=== PATIENT | female | born 1950 | race Caucasian/White ===

== ENCOUNTER 2016-06-28 08:48 | Observation (INO) ==
[2016-06-28] MEDS ORDERED: 0.9 % Sodium Chloride 500 ML IVC ONE (09:03)
[2016-06-28] MEDS ORDERED: Aspirin 81 MG TAB.CHEW PO ONE (09:03)
[2016-06-28] MEDS ORDERED: Ipratropium/Albuterol Neb 3 ML IH ONE (09:06)
[2016-06-28] MEDS ORDERED: Ondansetron 4 MG/2 ML VIAL IV ONE (09:06)
[2016-06-28] MEDS ORDERED: *HR* HYDROmorphone (PF) 1 MG/ML SYRINGE IV ONE (09:06)
[2016-06-28] MEDS ORDERED: methylPREDNISolone 125 MG/2 ML VIAL IVP ONE (09:07)
[2016-06-28 09:30] LABS: Basophils % 0.4 %; Eosinophils # 0.1 K/mcL (0.0-0.6); Eosinophils % 0.7 %; Hematocrit 33.3 % (35.3-44.9); Hemoglobin 11.4 g/dL (11.5-15.4); Immature Granulocytes % 0.4 % (0-4); Lymphocytes # 2.4 K/mcL (0.6-4.6); Lymphocytes % 24.1 %; Mean Corpuscular HGB Conc 34.2 g/dL (31.6-35.5); Mean Corpuscular Hemoglobin 32.7 pg (28.0-33.3); Mean Corpuscular Volume 95.4 fL (83.0-100.0); Mean Platelet Volume 9.2 fL (9.4-12.4); Monocytes # 0.5 K/mcL (0.0-1.3); Neutrophils # 6.8 K/mcL (1.6-8.9); Platelet Count 269 K/mcL (140-400); Red Blood Count 3.49 M/mcL (3.82-4.97); Red Cell Distribution Width 14.4 % (11.5-14.5); Segmented Neutrophils % 69.4 %
[2016-06-28 09:35] LABS: INR 1.1; Prothrombin Time 11.8 Seconds (9.4-12.1)
[2016-06-28 09:37] LABS: Activated Partial Thrombo Time 35.2 Seconds (26.0-36.0)
[2016-06-28 09:43] LABS: BUN/Creatinine Ratio 15 (6-26); Blood Urea Nitrogen 12 mg/dL (7-20); Calcium 8.9 mg/dL (8.6-10.8); Carbon Dioxide 25 mEq/L (19-29); Chloride 103 mEq/L (98-109); Glucose 107 mg/dL (70-99); Osmolality,Calculated 288 (280-300); Potassium 3.6 mEq/L (3.5-4.5); Sodium 139 mEq/L (136-145); eGFR For African Americans > 60 (> 60); eGFR For Non-African Americans > 60 (> 60)
--- NOTE | 2016-06-28 10:23 | Emergency Department Note ---
Disposition Clinical Impression: COPD exacerbation Chest pain Qualifiers: Qualified Code(s): R07.9 - Disposition: Admitted As Inpatient Condition: Fair Time of Disposition: 16:23 Chest Pain HPI - General Chief Complaint: ED Chest Pain Stated Complaint: Chest Pain Source: patient, EMS Mode of arrival: private vehicle Limitations: no limitations Vital Signs Reviewed: Yes Nursing Notes Reviewed: Yes - History of Present Illness HPI Narrative: 66-year-old female patient presents to the emergency department with complaint of chest pain. Patient states that her pain is midsternal and nonradiating. She denies any nausea, vomiting or diaphoresis. Patient states that she has had similar episodes in the past and with this occurred she initially took 3 nitroglycerin without any relief in her discomfort. Patient states that this occurred at approximately 0 2:30 this morning while she was asleep, and awoke her from sleep. Patient has had a previous stent placed in 2014 but was told at that time that she had no additional significant blockages of her coronary arteries. Additionally, patient notes that she has had a significant cough for the last several days, as well as a history of COPD. Pt complaint: chest pain Duration: constant Onset: during rest, awoke with symptoms Pain Location: substernal Severity: severe Severity scale (1-10): 10 Quality: tightness, sharp Pain Radiation: none Improves with: nothing Worsens with: nothing Associated symptoms: Denies: nausea, vomiting, diaphoresis, dyspnea Treatments prior to arrival chest pain: aspirin, nitroglycerin - Related Data Home Medications Medication Instructions Recorded Confirmed Acetaminophen [Tylenol] 1,000 mg PO Q6HR PRN 01/25/16 06/28/16 Acetylcysteine 600 mg PO BID 01/25/16 06/28/16 [N-Qbupmx-v-Cysteine] Albuterol Sulfate [Ventolin Hfa] 2 puff IH Q4H PRN 01/25/16 06/28/16 Aspirin 81 mg PO DAILY 01/25/16 06/28/16 Atorvastatin [Lipitor] 40 mg PO HS 01/25/16 06/28/16 Calcium Carbonate [Calcium] 500 mg PO TID 01/25/16 06/28/16 Citalopram [CeleXA] 20 mg PO DAILY 01/25/16 06/28/16 Cyanocobalamin (Vitamin B-12) 100 mcg PO DAILY 01/25/16 06/28/16 [Vitamin B-12] DiphenhydraMINE [Benadryl] 25 mg PO Q6HR PRN 01/25/16 06/28/16 Fluticasone/Vilanterol [Breo 1 each IH DAILY 01/25/16 06/28/16 Ellipta 100-25 Mcg INH] Furosemide [Lasix] 20 mg PO DAILY 01/25/16 06/28/16 Lisinopril [Zestril] 5 mg PO DAILY 01/25/16 06/28/16 Melatonin 10 mg PO HS 01/25/16 06/28/16 Metoprolol [Lopressor] 12.5 mg PO BID 01/25/16 06/28/16 Multivit-Min/Iron/Folic/Lutein 1 each PO DAILY 01/25/16 06/28/16 [Centrum Silver Women Tablet] Nitroglycerin [Nitrostat] 0.4 mg SL AD PRN 01/25/16 06/28/16 Omeprazole [PriLOSEC] 40 mg PO DAILY 01/25/16 06/28/16 Oxygen 3 l NS HS 01/25/16 06/28/16 Potassium Chloride [K-Tab ER] 20 meq PO DAILY 01/25/16 06/28/16 Ticagrelor [Brilinta] 90 mg PO BID 01/25/16 06/28/16 TraMADol [Ultram] 50 mg PO DAILY 01/25/16 06/28/16 TraZODone 50 mg PO HS 01/25/16 06/28/16 Tizanidine HCl 4 mg PO TID PRN 06/28/16 06/28/16 Allergies Allergy/AdvReac Type Severity Reaction Status Date / Time morphine Allergy Hallucinati Verified 06/09/16 19:02 ng All systems ED: reviewed and negative except as stated. Constitutional: Denies: fever, chills Cardiovascular: Reports: chest pain. Denies: palpitations Respiratory: Reports: cough, dyspnea, wheezes Gastrointestinal: Denies: abdominal pain, nausea, vomiting Musculoskeletal: Denies: back pain, neck pain Integumentary: Denies: rash, abrasion, lesions Neurological: Denies: headache Psychiatric: Denies: anxiety, depression, suicidal thoughts, homicidal thoughts Chest Pain PMH - Past Medical History Medical history: Reports: arthritis, cancer, COPD, coronary artery disease, GERD , hyperlipidemia, hypertension, myocardial infarction Surgical history: Reports: appendectomy, cholecystectomy Psychiatric history: Reports: anxiety, depression 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 Absent: respiratory distress - Expanded Respiratory Exam Location: wheezes: Left, Upper, Lower, rhonchi: Lower, decreased breath sounds: Upper, Lower, Left - Cardiovascular Cardiovascular exam: Present: regular rate, normal rhythm, normal heart sounds - Abdominal Exam Abdominal exam: Present: soft, Non-Tender, normal bowel sounds - Extremities Exam Extremities exam: Present: normal inspection, full ROM. Absent: tenderness, pedal edema - Back Exam Back exam: Present: normal inspection, full ROM. Absent: tenderness - Neurological Exam Neurological exam: Present: alert, oriented X3 - Psychiatric Psychiatric exam: Present: normal affect, normal mood Course Vital Signs Temperature 98.6 F 06/28/16 08:49 Pulse Rate 69 06/28/16 08:49 Respiratory Rate 16 06/28/16 08:49 Blood Pressure 135/83 06/28/16 08:49 O2 Sat by Pulse Oximetry 93 L 06/28/16 08:49 Temperature 98.1 F 06/28/16 15:03 Pulse Rate 79 06/28/16 15:03 Respiratory Rate 16 06/28/16 15:58 Blood Pressure 129/75 06/28/16 15:03 O2 Sat by Pulse Oximetry 95 06/28/16 15:58 Oxygen Delivery Oxygen Delivery Room Air Chest Pain - Lab Data Lab results reviewed: Yes I reviewed the patient's lab results. Result diagrams: 06/28/16 09:21 06/28/16 09:21 Lab Results 06/28/16 06/28/16 06/28/16 Range/Units 09:21 09:21 09:21 WBC 9.8 (4.3-11.1) K/mcL RBC 3.49 L (3.82-4.97) M/mcL Hgb 11.4 L (11.5-15.4) g/dL Hct 33.3 L (35.3-44.9) % MCV 95.4 (83.0-100.0) fL MCH 32.7 (28.0-33.3) pg MCHC 34.2 (31.6-35.5) g/dL RDW 14.4 (11.5-14.5) % Plt Count 269 (140-400) K/mcL MPV 9.2 L (9.4-12.4) fL Immature Gran % 0.4 (0-4) % Seg Neutrophils % 69.4 % Lymphocytes % 24.1 % Monocytes % 5.0 % Eosinophils % 0.7 % Basophils % 0.4 % Neutrophils # 6.8 (1.6-8.9) K/mcL Lymphocytes # 2.4 (0.6-4.6) K/mcL Monocytes # 0.5 (0.0-1.3) K/mcL Eosinophils # 0.1 (0.0-0.6) K/mcL Basophils # 0.0 (0.0-0.2) K/mcL PT 11.8 (9.4-12.1) Seconds INR 1.1 APTT 35.2 (26.0-36.0) Seconds Sodium (136-145) mEq/L Potassium (3.5-4.5) mEq/L Chloride (98-109) mEq/L Carbon Dioxide (19-29) mEq/L BUN (7-20) mg/dL Creatinine (0.57-1.11) mg/dL Est GFR ( Amer) (> 60) Est GFR (Non-Af Amer) (> 60) BUN/Creatinine Ratio (6-26) Glucose (70-99) mg/dL Calculated Osmolality (280-300) Calcium (8.6-10.8) mg/dL Troponin I (0-0.03) ng/mL B-Natriuretic Peptide 33 (0-100) pg/mL Urine Color (Yellow) Urine Clarity (Clear) Urine pH (5.0-8.0) pH Units Ur Specific [place] (1.010-1.025) Urine Protein (Neg-Trace) mg/dL Urine Glucose (UA) (Normal) mg/dL Urine Ketones (Negative) mg/dL Urine Blood (Negative) Urine Nitrite (Negative) Urine Bilirubin (Negative) Urine Urobilinogen (Normal) mg/dL Ur Leukocyte Esterase (Negative) Urine Microscopic RBC (0-3) per hpf Urine Microscopic WBC (0-3) per hpf Ur Squamous Epith Cells (None-Few) per lpf Urine Bacteria (None-Few) per hpf Hyaline Casts (None-Few) per lpf Ur Culture Indicated? (NO) Urine Opiates Screen (Rxtgcm=989) ng/mL Ur Barbiturates Screen (Vwinfx=022) ng/mL Ur Phencyclidine Scrn (Cutoff=25) ng/mL Ur Amphetamines Screen (Czzucr=1491) ng/mL U Benzodiazepines Scrn (Aazfde=608) ng/mL Urine Cocaine Screen (Cutoff= 300) ng/mL U Marijuana (THC) Screen (Cutoff = 50) ng/mL 06/28/16 06/28/16 06/28/16 Range/Units 09:21 09:21 11:03 WBC (4.3-11.1) K/mcL RBC (3.82-4.97) M/mcL Hgb (11.5-15.4) g/dL Hct (35.3-44.9) % MCV (83.0-100.0) fL MCH (28.0-33.3) pg MCHC (31.6-35.5) g/dL RDW (11.5-14.5) % Plt Count (140-400) K/mcL MPV (9.4-12.4) fL Immature Gran % (0-4) % Seg Neutrophils % % Lymphocytes % % Monocytes % % Eosinophils % % Basophils % % Neutrophils # (1.6-8.9) K/mcL Lymphocytes # (0.6-4.6) K/mcL Monocytes # (0.0-1.3) K/mcL Eosinophils # (0.0-0.6) K/mcL Basophils # (0.0-0.2) K/mcL PT (9.4-12.1) Seconds INR APTT (26.0-36.0) Seconds Sodium 139 (136-145) mEq/L Potassium 3.6 (3.5-4.5) mEq/L Chloride 103 (98-109) mEq/L Carbon Dioxide 25 (19-29) mEq/L BUN 12 (7-20) mg/dL Creatinine 0.80 (0.57-1.11) mg/dL Est GFR ( Amer) > 60 (> 60) Est GFR (Non-Af Amer) > 60 (> 60) BUN/Creatinine Ratio 15 (6-26) Glucose 107 H (70-99) mg/dL Calculated Osmolality 288 (280-300) Calcium 8.9 (8.6-10.8) mg/dL Troponin I 0.00 (0-0.03) ng/mL B-Natriuretic Peptide (0-100) pg/mL Urine Color Yellow (Yellow) Urine Clarity Turbid A (Clear) Urine pH 6.0 (5.0-8.0) pH Units Ur Specific [place] 1.014 (1.010-1.025) Urine Protein Negative (Neg-Trace) mg/dL Urine Glucose (UA) Normal (Normal) mg/dL Urine Ketones Negative (Negative) mg/dL Urine Blood Moderate H (Negative) Urine Nitrite Negative (Negative) Urine Bilirubin Negative (Negative) Urine Urobilinogen Normal (Normal) mg/dL Ur Leukocyte Esterase Small H (Negative) Urine Microscopic RBC 30-50 H (0-3) per hpf Urine Microscopic WBC 5-15 H (0-3) per hpf Ur Squamous Epith Cells Many H (None-Few) per lpf Urine Bacteria Many H (None-Few) per hpf Hyaline Casts None Seen (None-Few) per lpf Ur Culture Indicated? YES A (NO) Urine Opiates Screen (Stpvmx=076) ng/mL Ur Barbiturates Screen (Isqsym=445) ng/mL Ur Phencyclidine Scrn (Cutoff=25) ng/mL Ur Amphetamines Screen (Cyungr=3004) ng/mL U Benzodiazepines Scrn (Bjywrn=719) ng/mL Urine Cocaine Screen (Cutoff= 300) ng/mL U Marijuana (THC) Screen (Cutoff = 50) ng/mL 06/28/16 Range/Units 11:03 WBC (4.3-11.1) K/mcL RBC (3.82-4.97) M/mcL Hgb (11.5-15.4) g/dL Hct (35.3-44.9) % MCV (83.0-100.0) fL MCH (28.0-33.3) pg MCHC (31.6-35.5) g/dL RDW (11.5-14.5) % Plt Count (140-400) K/mcL MPV (9.4-12.4) fL Immature Gran % (0-4) % Seg Neutrophils % % Lymphocytes % % Monocytes % % Eosinophils % % Basophils % % Neutrophils # (1.6-8.9) K/mcL Lymphocytes # (0.6-4.6) K/mcL Monocytes # (0.0-1.3) K/mcL Eosinophils # (0.0-0.6) K/mcL Basophils # (0.0-0.2) K/mcL PT (9.4-12.1) Seconds INR APTT (26.0-36.0) Seconds Sodium (136-145) mEq/L Potassium (3.5-4.5) mEq/L Chloride (98-109) mEq/L Carbon Dioxide (19-29) mEq/L BUN (7-20) mg/dL Creatinine (0.57-1.11) mg/dL Est GFR ( Amer) (> 60) Est GFR (Non-Af Amer) (> 60) BUN/Creatinine Ratio (6-26) Glucose (70-99) mg/dL Calculated Osmolality (280-300) Calcium (8.6-10.8) mg/dL Troponin I (0-0.03) ng/mL B-Natriuretic Peptide (0-100) pg/mL Urine Color (Yellow) Urine Clarity (Clear) Urine pH (5.0-8.0) pH Units Ur Specific [place] (1.010-1.025) Urine Protein (Neg-Trace) mg/dL Urine Glucose (UA) (Normal) mg/dL Urine Ketones (Negative) mg/dL Urine Blood (Negative) Urine Nitrite (Negative) Urine Bilirubin (Negative) Urine Urobilinogen (Normal) mg/dL Ur Leukocyte Esterase (Negative) Urine Microscopic RBC (0-3) per hpf Urine Microscopic WBC (0-3) per hpf Ur Squamous Epith Cells (None-Few) per lpf Urine Bacteria (None-Few) per hpf Hyaline Casts (None-Few) per lpf Ur Culture Indicated? (NO) Urine Opiates Screen Negative (Uhmhxa=178) ng/mL Ur Barbiturates Screen Negative (Hsqzjh=144) ng/mL Ur Phencyclidine Scrn Negative (Cutoff=25) ng/mL Ur Amphetamines Screen Negative (Menfdc=6755) ng/mL U Benzodiazepines Scrn Negative (Evcmys=976) ng/mL Urine Cocaine Screen Negative (Cutoff= 300) ng/mL U Marijuana (THC) Screen Negative (Cutoff = 50) ng/mL - Radiology Data Radiology results reviewed: Yes I reviewed the patient's radiology results. - EKG Data EKG attestation: Yes I reviewed and interpreted this EKG. EKG shows normal: sinus rhythm Rate: normal Rhythm: NSR Garrett/QRS: normal Heart Score - Score History: Highly Suspicious EKG: Normal Age: Greater than 65 Risk Factors: Equal/Greater than 3 risk factor or history of atherosclerotic disease Troponin: Less than normal limit HEART Score Total: 6
--- NOTE | 2016-06-28 10:55 | Emergency Department Note ---
START Narrative - START START: I examined this patient and my medical decision-making was reviewed with the LAWYER PROBATE/PA/Advanced Practice Nurse/Resident Physician. I agree with the documented findings, disposition and treatment plan as described except to the extent set forth below. ED attending note: Patient seen with edition assistant editor Benja ELY. Please see a copy of his note for details of the H&P, evaluation, management and disposition of this patient. We independently had [id number] contact with the patient Briefly: A 66-year-old female by EMS chest pain. History of stents. Took 3 nitroglycerin at home. Her pain. EKG nonspecific changes. 5. Troponin negative. Will be admitted for ACS workup. Provided 35 minutes of critical care service this patient.
[2016-06-28 11:17] LABS: Amphetamine Screen,Urine Negative ng/mL (Cutoff=1000); Barbiturate Screen,Urine Negative ng/mL (Cutoff=200); Benzodiazepines Screen,Urine Negative ng/mL (Cutoff=200); Cannabinoid Screen,Urine Negative ng/mL (Cutoff = 50); Cocaine Screen,Urine Negative ng/mL (Cutoff= 300); Opiate Screen,Urine Negative ng/mL (Cutoff=300); Phencyclidine Screen,Urine Negative ng/mL (Cutoff=25)
[2016-06-28 11:32] LABS: Bilirubin,Urine Negative (Negative); Blood,Urine Moderate (Negative); Clarity,Urine Turbid (Clear); Color,Urine Yellow (Yellow); Glucose,Urine (UA) Normal (Normal); Ketones,Urine Negative (Negative); Leukocyte Esterase,Urine Small (Negative); Nitrite,Urine Negative (Negative); Protein,Urine Negative (Neg-Trace); Specific Gravity,Urine 1.014 (1.010-1.025); Urobilinogen,Urine Normal (Normal)
[2016-06-28 11:33] LABS: Bacteria,Urine Many per hpf (None-Few); Hyaline Casts,Urine None Seen per lpf (None-Few); Squamous Epithelial Cell,Urine Many per lpf (None-Few)
[2016-06-28 11:46] LABS: RBC,Urine 30-50 per hpf (0-3)
[2016-06-28] MEDS ORDERED: *HR* Enoxaparin 100 MG/ML SYRINGE SQ ONE (12:26)
--- NOTE | 2016-06-28 12:43 | Internal Med History&Physical ---
Date of Encounter: 06/28/16 Time of Encounter: 12:41 Assessment and Plan (1) Chest pain Current visit: Yes Status: Acute Patient has continued register no chest pain. Her electrocardiogram shows no ST segment shifts and initial troponin is normal. I will give the patient one dose of Lovenox 1 mg per KG. I will ask cardiology service to see the patient. Start the patient on long-acting nitrates. Serial cardiac markers. Continuous telemetry monitoring. Continue beta blockers. Her heart rate is 60s. Qualifiers: Qualified Code(s): R07.9 - Chest pain, unspecified (2) COPD exacerbation Current visit: Yes Status: Acute Only mild exacerbation she has some increased coffin just wheezing I will keep the patient on nebulizer treatment as well as oral steroids. (3) Fall Current visit: No Status: Acute Denies any loss of consciousness [place] trauma. She will get one dose of full dose Lovenox. Monitor mental status. Qualifiers: Encounter type: initial encounter Qualified Code(s): W19.XXXA - Unspecified fall, initial encounter (4) Urinary tract infection Current visit: No Status: Acute Questionable UTI. She has prior infections were the gram-negative organisms sensitive to ceftriaxone. I will start the patient on ceftriaxone 1 g daily. She has lots of squamous cells so awaite culture Qualifiers: Urinary tract infection type: site unspecified Hematuria presence: without hematuria Qualified Code(s): N39.0 - Urinary tract infection, site not specified Internal Medicine - H&P: HPI Chief complaint: chest pain History of present illness: Ms. Vegas is a 66 year old female with a history of coronary artery disease status. PCI to the left main and RCA in 2014, COPD on 2 L home oxygen presents to the emergency room today with the main complaining of chest pain. Patient was awakened from sleep at 2:30 AM with retro sternal chest pain associated with shortness of breath and sweating. This being lasted for approximately 6 hours to she arrived to the emergency room. She was in pain during my interview. She mentioned that this pain is similar to her prior pain that prompted cardiac intervention. The patient has also been noticing that she is more short of breath than usual and having some yellowish sputum production and chest wheezing. She actually had a fault of a on her left side without hitting her head after she felt lightheaded. She denies hitting her head during the fall. The patient is compliant will with her dual antiplatelet therapy with aspirin and Brilinta Past Med Surg Social Fam HX - Past Medical History Medical history: arthritis, cancer, COPD, coronary artery disease, GERD, hyperlipidemia, hypertension, myocardial infarction Psychiatric history: anxiety, depression - Past Surgical History Surgical History: appendectomy, cholecystectomy - Social History Smoking Status: Current every day smoker Smokeless Tobacco Status: No Alcohol use: none Drug use: none - Family History Father Adopted: No Family Member Ethnicity: Non- Living Status: Hx Family Cardiac Disorders: Yes (mi) Hx Family Respiratory Disorders: Yes (black lung) Hx Family Cancer: Yes (bone) Hx Family GI Disorders: Yes Hx Family Endocrine Disorder: No Hx Family Neuromuscular Disorders: No Hx Family Neurologic Disorders: No Hx Family HEENT Disorders: No Hx Family Autoimmune Disorders: No Internal Medicine - H&P: Meds Acetaminophen [Tylenol] 1,000 mg PO Q6HR PRN 01/25/16 [History] Acetylcysteine [V-Yllehg-y-Cysteine] 600 mg PO BID 01/25/16 [History] Albuterol Sulfate [Ventolin Hfa] 2 puff IH Q4H PRN 01/25/16 [History] Aspirin 81 mg PO DAILY 01/25/16 [History] Atorvastatin [Lipitor] 40 mg PO HS 01/25/16 [History] Calcium Carbonate [Calcium] 500 mg PO TID 01/25/16 [History] Citalopram [CeleXA] 20 mg PO DAILY 01/25/16 [History] Cyanocobalamin (Vitamin B-12) [Vitamin B-12] 100 mcg PO DAILY 01/25/16 [History] DiphenhydraMINE [Benadryl] 25 mg PO Q6HR PRN 01/25/16 [History] Fluticasone/Vilanterol [Breo Ellipta 100-25 Mcg INH] 1 each IH DAILY 01/25/16 [ History] Furosemide [Lasix] 20 mg PO DAILY 01/25/16 [History] Lisinopril [Zestril] 5 mg PO DAILY 01/25/16 [History] Melatonin 10 mg PO HS 01/25/16 [History] Metoprolol [Lopressor] 12.5 mg PO BID 01/25/16 [History] Multivit-Min/Iron/Folic/Lutein [Centrum Silver Women Tablet] 1 each PO DAILY [History] Nitroglycerin [Nitrostat] 0.4 mg SL AD PRN 01/25/16 [History] Omeprazole [PriLOSEC] 40 mg PO DAILY 01/25/16 [History] Oxygen 3 l NS HS 01/25/16 [History] Potassium Chloride [K-Tab ER] 20 meq PO DAILY 01/25/16 [History] Ticagrelor [Brilinta] 90 mg PO BID 01/25/16 [History] TraMADol [Ultram] 50 mg PO DAILY 01/25/16 [History] TraZODone 50 mg PO HS 01/25/16 [History] Tizanidine HCl 4 mg PO TID PRN 06/28/16 [History] Allergies morphine Allergy (Verified 06/09/16 19:02) Hallucinating All Systems PM: A 10-system review of systems was performed and is negative for pertinent findings except as documented above in the HPI. Review of systems: 10 point review of systems is negative except for HPI - Constitutional Vitals: Temp Pulse Resp BP Pulse Ox 97.9 F 65 16 138/66 95 06/28/16 12:28 06/28/16 12:28 06/28/16 12:28 06/28/16 12:28 06/28/16 12:28 Exam: Gen.: patient is alert oriented not in distress. Cardiac: Normal S1 S2 no additional sounds or murmurs chest: slightly diminished air entry, faint expiratory wheeze abdomen soft nontender nondistended normal bowel sounds lower extremity: lax calf muscles neuro no focal deficit Internal Med - H&P Results - Labs CBC & Chem 7: 06/28/16 09:21 06/28/16 09:21
[2016-06-28] MEDS: predniSONE 20 MG TABLET PO SCH (13:09)
--- NOTE | 2016-06-28 14:09 | Cardiology Consult Note ---
<SaniyaAaron Lizbeth - Last Filed: 06/28/16 14:51> Date of Encounter: 06/28/16 Time of Encounter: 13:30 Assessment and Plan (1) Atypical chest pain Current Visit: Yes Status: Acute Per cardiology: -Patient with one episode of dull, nagging mid-sternal chest pain. Pain has persisted since 0230, about 12 hours. -Known history of CAD with [facility] May 2014 with left main 55% with ALAYNA, 30% stenosis mid LAD, 30% stenosis mid circumflex, 30% proximal RCA, 95% mid RCA with ALAYNA. -Chest pain worsened with palpation of chest. -Troponin negative x1. -ECG with sinus rhythm, -On asa, statin, rush, beta neal, and brilinta. -States has not missed any asa or brilinta. -Echocardiogram 05/14/16 with LVEF 60%, mild mitral regurgitation, all wall segments with normal motion, mild diastolic dysfunction. -Will watch for trending troponins. -Will continue to follow. (GRACE) (2) COPD (chronic obstructive pulmonary disease) Current Visit: Yes Status: Chronic Per cardiology: -Known history of COPD. -O2 dependenet. -Reports productive cough with yellow sputum. -May be contributing to atypical chest pain. -Managemet per primary service. (GRACE) Qualifiers: COPD type: unspecified COPD Qualified Code(s): J44.9 - Chronic obstructive pulmonary disease, unspecified (3) Coronary artery disease Current Visit: No Status: Chronic Per cardiology: -KNown history of CAD with stenting 2014 to left main and RCA. -On asa, brilinta, rush, statin, and beta neal. -ECG with sinus rhythm. -Atypical chest pain. -Will watch for trending troponins. Qualifiers: Coronary Disease-Associated Artery/Lesion type: [place] artery [place] vs. transplanted heart: [place] heart Associated angina: angina presence unspecified Qualified Code(s): I25.10 - Atherosclerotic heart disease of [place] coronary artery without angina pectoris (4) Tobacco abuse Current Visit: Yes Status: Acute Per cardiology: -Known smoker. -Smokes 2 packs per day for 50 years. -100 pack year history. -I spent 3-5 minutes discussing smoking cessation with patient. (GRACE) Discussion w patient/family: The assessment and plan as outlined above was discussed with the patient and/or family members who expressed understanding and agreement. All questions were answered. Thank you for involving us in the care of your patient. Please call with any questions. Patient seen and examined with NIKKIE Al Discussed and reviewed with . History of Present Illness Consult date: 06/28/16 Requesting physician: Braulio Agustin Consult reason: chest pain Chief complaint: chest pain History of present illness: Ms. Vegas is a 66 year old female with a relevant past medical history of lung CA status post lobectomy, HTN, anxiety, depression, COPD with O2 dependence, sleep apnea, [place], CVA, GERD, AAA, Coronary stents 2014, smoking. Patient states she was sleeping last night and was awakened by dull, nagging mid-sternal chest pain. Patient states she took 3 nitro at home and pain was not relieved so she called preethi squad. Patient states the squad gave her another nitro and asa. Patient denies alleviating or aggervating factors. Patient states until last night she had been chest pain free. Patient states she still has the same pain and currently rates 8/10. Patient states shortness of breath is baseline. Patient states that fatigue is worse. Patient also admits to productive cough with yellow sputum. Of note, patient also report recent history of mechanical fall about a week ago. Bruise noted to left arm. (GRACE) Past Med Surg Social Fam HX - Past Medical History Attestation: Yes The following information was validated with the patient. Source: patient, old records reviewed, obtained from family Medical history: arthritis, cancer, COPD, coronary artery disease, GERD, hyperlipidemia, hypertension, myocardial infarction Psychiatric history: anxiety, depression - Past Surgical History Surgical History: appendectomy, cholecystectomy - Social History Smoking Status: Current every day smoker Smokeless Tobacco Status: No Alcohol use: none Drug use: none - Family History Father Adopted: No Family Member Ethnicity: Non- Living Status: Hx Family Cardiac Disorders: Yes (mi) Hx Family Respiratory Disorders: Yes (black lung) Hx Family Cancer: Yes (bone) Hx Family GI Disorders: Yes Hx Family Endocrine Disorder: No Hx Family Neuromuscular Disorders: No Hx Family Neurologic Disorders: No Hx Family HEENT Disorders: No Hx Family Autoimmune Disorders: No Medications and Allergies Acetaminophen [Tylenol] 1,000 mg PO Q6HR PRN 01/25/16 [History] Acetylcysteine [E-Bnfnbu-o-Cysteine] 600 mg PO BID 01/25/16 [History] Albuterol Sulfate [Ventolin Hfa] 2 puff IH Q4H PRN 01/25/16 [History] Aspirin 81 mg PO DAILY 01/25/16 [History] Atorvastatin [Lipitor] 40 mg PO HS 01/25/16 [History] Calcium Carbonate [Calcium] 500 mg PO TID 01/25/16 [History] Citalopram [CeleXA] 20 mg PO DAILY 01/25/16 [History] Cyanocobalamin (Vitamin B-12) [Vitamin B-12] 100 mcg PO DAILY 01/25/16 [History] DiphenhydraMINE [Benadryl] 25 mg PO Q6HR PRN 01/25/16 [History] Fluticasone/Vilanterol [Breo Ellipta 100-25 Mcg INH] 1 each IH DAILY 01/25/16 [ History] Furosemide [Lasix] 20 mg PO DAILY 01/25/16 [History] Lisinopril [Zestril] 5 mg PO DAILY 01/25/16 [History] Melatonin 10 mg PO HS 01/25/16 [History] Metoprolol [Lopressor] 12.5 mg PO BID 01/25/16 [History] Multivit-Min/Iron/Folic/Lutein [Centrum Silver Women Tablet] 1 each PO DAILY [History] Nitroglycerin [Nitrostat] 0.4 mg SL AD PRN 01/25/16 [History] Omeprazole [PriLOSEC] 40 mg PO DAILY 01/25/16 [History] Oxygen 3 l NS HS 01/25/16 [History] Potassium Chloride [K-Tab ER] 20 meq PO DAILY 01/25/16 [History] Ticagrelor [Brilinta] 90 mg PO BID 01/25/16 [History] TraMADol [Ultram] 50 mg PO DAILY 01/25/16 [History] TraZODone 50 mg PO HS 01/25/16 [History] Tizanidine HCl 4 mg PO TID PRN 06/28/16 [History] Allergies morphine Allergy (Verified 06/09/16 19:02) Hallucinating All Systems Review: A 10-system review of systems was performed and is negative for pertinent findings except as documented above in the HPI. - Constitutional Constitutional: fatigue - Cardiovascular Cardiovascular: as per HPI, chest pain at rest, dyspnea on exertion - Respiratory Respiratory: cough Physical Examination Vital Signs, Last 4 Hours Temp Pulse Resp BP Pulse Ox 06/28/16 12:28 97.9 F 65 16 138/66 95 06/28/16 11:59 18 138/64 General: Conversant, No Apparent Distress HEENT: Atraumatic, Normocephaly, Mucus Membranes Moist Neck: No JVD, Normal carotid pulses Cardiac: Reg Rate and Rhythm, Normal S1 and S2, No Murmur Lungs: Other (Bilateral lower lobes with coarse breath sounds. ) Neuro: Alert and responsive, No focal deficits noted Abdomen: Soft, Non-Tender Skin: No rashes noted on visualized skin Musculoskeletal: Other (Chest pain worsened with palpation. ) Extremities: No Clubbing, No Cyanosis, No Edema, Normal Pulses Results 06/28/16 09:21 06/28/16 09:21 Impressions Chest X-Ray 06/28/16 08:58 IMPRESSION: Stable exam with no acute abnormality. D/ / Mohan Corbett MD / Mohan Corbett MD Interpreting Provider: Mohna Corbett MD Active Medications Acetaminophen (Tylenol) 1,000 mg PO Q6HR PRN PRN Reason: MILD PAIN (1-3) Stop: 12/28/16 12:30 Albuterol Sulfate (Albuterol Inhaler) 2 puff IH Q4H PRN PRN Reason: Shortness Of Breath Stop: 12/28/16 12:30 Aspirin (Aspirin) 81 mg PO DAILY LAURI Stop: 12/29/16 09:01 Atorvastatin Calcium (Lipitor) 40 mg PO HS LAURI Stop: 12/28/16 21:01 Citalopram Hydrobromide (Celexa) 20 mg PO DAILY LAURI Stop: 12/29/16 09:01 Furosemide (Lasix) 20 mg PO DAILY LAURI Stop: 12/29/16 09:01 Ceftriaxone Sodium 1,000 mg/ (Dextrose) 100 mls @ 200 mls/hr IVPB Q24H LAURI Stop: 12/28/16 13:01 Last Admin: 06/28/16 13:17 Dose: 200 mls/hr Levalbuterol HCl (Xopenex) 0.63 mg IH [id number] LAURI Stop: 12/28/16 16:01 Lisinopril (Zestril) 5 mg PO DAILY LAURI PRN Reason: Protocol Stop: 12/29/16 09:01 Metoprolol Tartrate (Lopressor) 12.5 mg PO BID LAURI Stop: 12/28/16 21:01 (Fluticasone/Vilanterol [Breo Ellipta 100-25 Mcg Inh]) 1 each IH DAILY LAURI Stop: 12/29/16 09:01 Omeprazole (Prilosec) 40 mg PO DAILY LAURI Stop: 12/29/16 09:01 Prednisone (Prednisone) 40 mg PO DAILY LAURI Stop: 12/28/16 12:31 Last Admin: 06/28/16 13:09 Dose: Not Given Ticagrelor (Brilinta) 90 mg PO BID LAURI Stop: 12/28/16 21:01 Tramadol HCl (Ultram) 50 mg PO DAILY PRN PRN Reason: Pain Stop: 12/29/16 09:01 Trazodone HCl (Trazodone) 50 mg PO HS LAURI Stop: 12/28/16 21:01 Laboratory Tests 01/28/16 06/09/16 06/28/16 03:19 19:41 09:21 Hgb 10.9 L 12.4 11.4 L Hct 33.3 L Creatinine Troponin I 06/28/16 06/28/16 09:21 09:21 Hgb Hct Creatinine 0.80 Troponin I 0.00 - Imaging and Cardiology Chest Xray: report reviewed Echo: report reviewed - EKG Interpretation EKG results cardiology: personally reviewed (ECG reviewed with sinus rhythm, HR 64.), other (Unable to review telemetry as patient just arrived to the floor.) Consult Discharge Plan - Plan Referrals: Patricia Matthews, FUNERAL SALES MANAGER [Primary Care Provider] - <Isabell Dow - Last Filed: 06/28/16 15:25> Date of Encounter: 06/28/16 Assessment and Plan Discussion w patient/family: The assessment and plan as outlined above was discussed with the patient and/or family members who expressed understanding and agreement. All questions were answered. Thank you for involving us in the care of your patient. Please call with any questions. History of Present Illness History of present illness: Ms. Vegas is a 66 year old female All Systems Review: A 10-system review of systems was performed and is negative for pertinent findings except as documented above in the HPI. Physical Examination Vital Signs, Last 4 Hours Temp Pulse Resp BP Pulse Ox 06/28/16 15:03 98.1 F 79 16 129/75 95 06/28/16 12:28 97.9 F 65 16 138/66 95 06/28/16 11:59 18 138/64 Results 06/28/16 09:21 06/28/16 09:21 - Attending Attestation I examined this patient and my medical decision-making was reviewed with the SENIOR INFORMATION DEVELOPER/PA/Advanced Practice Nurse/Resident Physician. I agree with the documented findings, disposition and treatment plan. Ms. Vegas presents with atypical chest pain, no ECG changes and a negative initial troponin. She has reproducible tenderness upon palpation of her mid epigastric area. We will await a second troponin to rule out ACS. However, her presentation does not appear to represent an acute coronary syndrome. Recommend continuing antiplatelet and statin.
[2016-06-28] MEDS: Levalbuterol Neb 0.63 MG/3 ML IH SCH ×2 (15:51→21:05)
[2016-06-28] MEDS: traMADol 50 MG TABLET PO PRN (16:49)
--- NOTE | 2016-06-28 18:41 | Electrocardiograph Report ---
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: YAAKOV : [id number] Requested By: Yadiel English Order Number: [id number] Reading MD: Kayleen Boykin DO Measurements Intervals [place] Rate: 64 P: 38 [place]: 191 QRS: -25 QRSD: 104 T: 7 QT: 436 QTc: 446 Interpretive Statements SINUS RHYTHM BORDERLINE LEFT AXIS DEVIATION [QRS AXIS < -20] INCOMPLETE RIGHT BUNDLE BRANCH BLOCK [90+ ms QRS DURATION, TERMINAL R IN V1/V2, 40+ ms S IN I/aVL/V4/V5/V6] MINIMAL VOLTAGE CRITERIA FOR LVH, CONSIDER NORMAL VARIANT [MEETS CRITERIA IN ONE OF: R(aVL), S(V1), R(V5), R(V5/V6)+S(V1)] LEFT AXIS DEVIATION Electronically Signed On 06-28-2016 18:39:33 EDT by Kayleen Boykin DO
[2016-06-28] MEDS: *HR* Ticagrelor 90 MG TABLET PO SCH (20:12)
[2016-06-28] MEDS ORDERED: traZODone 50 MG TABLET PO SCH (21:00)
[2016-06-28] MEDS ORDERED: Melatonin 3 MG TABLET PO SCH (21:30)
[2016-06-29] MEDS: Levalbuterol Neb 0.63 MG/3 ML IH SCH ×2 (04:26→10:51)
[2016-06-29 06:01] LABS: Basophils % 0.1 %; Hematocrit 32.7 % (35.3-44.9); Immature Granulocytes % 0.5 % (0-4); Lymphocytes # 2.2 K/mcL (0.6-4.6); Lymphocytes % 16.8 %; Mean Corpuscular HGB Conc 33.6 g/dL (31.6-35.5); Mean Corpuscular Volume 95.1 fL (83.0-100.0); Mean Platelet Volume 9.5 fL (9.4-12.4); Monocytes # 0.6 K/mcL (0.0-1.3); Monocytes % 4.4 %; Neutrophils # 10.4 K/mcL (1.6-8.9); Platelet Count 276 K/mcL (140-400); Red Blood Count 3.44 M/mcL (3.82-4.97); Red Cell Distribution Width 14.2 % (11.5-14.5); Segmented Neutrophils % 78.2 %
[2016-06-29 06:14] LABS: BUN/Creatinine Ratio 13 (6-26); Blood Urea Nitrogen 10 mg/dL (7-20); Calcium 9.2 mg/dL (8.6-10.8); Carbon Dioxide 25 mEq/L (19-29); Chloride 107 mEq/L (98-109); Glucose 108 mg/dL (70-99); Magnesium 2.1 mg/dL (1.6-2.6); Osmolality,Calculated 290 (280-300); Potassium 3.8 mEq/L (3.5-4.5); Sodium 140 mEq/L (136-145); eGFR For African Americans > 60 (> 60); eGFR For Non-African Americans > 60 (> 60)
[2016-06-29] MEDS: traMADol 50 MG TABLET PO PRN (07:40)
--- NOTE | 2016-06-29 08:10 | Event Note ---
Date of Encounter: 06/28/16 Time of Encounter: 08:00 - Cardiology Event Note Patient with atypical chest pain. Recent echocardiogram with no wall motion abnormalities. ECG with sinus rhythm. Troponins 0 x3. Per 's recommendation from 06/28/16, cardiology will sign off and will follow up as outpatient. Outpatient follow up set. Patient agreeable to plan. (GRACE)
[2016-06-29] MEDS: predniSONE 20 MG TABLET PO SCH (08:55)
[2016-06-29] MEDS: *HR* Ticagrelor 90 MG TABLET PO SCH (08:56)
[2016-06-29] MEDS ORDERED: Aspirin 81 MG TAB.CHEW PO SCH (09:00)
[2016-06-29] MEDS ORDERED: Furosemide 20 MG TABLET PO SCH (09:00)
[2016-06-29] MEDS ORDERED: (Fluticasone/Vilanterol [Breo Ellipta 100-25 Mcg Inh]) IH SCH (09:00)
--- NOTE | 2016-06-29 09:52 | Discharge Summary ---
Date of Encounter: 06/28/16 Time of Encounter: 08:45 - Discharge Diagnosis (1) Coronary artery disease Priority: Secondary Status: Chronic Qualifiers: Coronary Disease-Associated Artery/Lesion type: [place] artery [place] vs. transplanted heart: [place] heart Associated angina: angina presence unspecified Qualified Code(s): I25.10 - Atherosclerotic heart disease of [place] coronary artery without angina pectoris (2) DVT prophylaxis Priority: Secondary Status: Acute (3) Atypical chest pain Priority: Primary Status: Resolved (4) COPD (chronic obstructive pulmonary disease) Priority: Secondary Status: Chronic Qualifiers: COPD type: unspecified COPD Qualified Code(s): J44.9 - Chronic obstructive pulmonary disease, unspecified (5) Tobacco abuse Priority: Secondary Status: Acute - Discharge Medications Prescriptions: Levofloxacin [Levaquin] 750 mg PO DAILY #4 tablet PredniSONE 40 mg PO DAILY #7 tablet Home Medications: Acetaminophen [Tylenol] 1,000 mg PO Q6HR PRN 01/25/16 [History] Acetylcysteine [V-Tkhmup-u-Cysteine] 600 mg PO BID 01/25/16 [History] Albuterol Sulfate [Ventolin Hfa] 2 puff IH Q4H PRN 01/25/16 [History] Aspirin 81 mg PO DAILY 01/25/16 [History] Atorvastatin [Lipitor] 40 mg PO HS 01/25/16 [History] Calcium Carbonate [Calcium] 500 mg PO TID 01/25/16 [History] Citalopram [CeleXA] 20 mg PO DAILY 01/25/16 [History] Cyanocobalamin (Vitamin B-12) [Vitamin B-12] 100 mcg PO DAILY 01/25/16 [History] DiphenhydraMINE [Benadryl] 25 mg PO Q6HR PRN 01/25/16 [History] Fluticasone/Vilanterol [Breo Ellipta 100-25 Mcg INH] 1 each IH DAILY 01/25/16 [ History] Furosemide [Lasix] 20 mg PO DAILY 01/25/16 [History] Lisinopril [Zestril] 5 mg PO DAILY 01/25/16 [History] Melatonin 10 mg PO HS 01/25/16 [History] Metoprolol [Lopressor] 12.5 mg PO BID 01/25/16 [History] Multivit-Min/Iron/Folic/Lutein [Centrum Silver Women Tablet] 1 each PO DAILY [History] Nitroglycerin [Nitrostat] 0.4 mg SL AD PRN 01/25/16 [History] Omeprazole [PriLOSEC] 40 mg PO DAILY 01/25/16 [History] Oxygen 3 l NS HS 01/25/16 [History] Potassium Chloride [K-Tab ER] 20 meq PO DAILY 01/25/16 [History] Ticagrelor [Brilinta] 90 mg PO BID 01/25/16 [History] TraMADol [Ultram] 50 mg PO DAILY 01/25/16 [History] TraZODone 50 mg PO HS 01/25/16 [History] Tizanidine HCl 4 mg PO TID PRN 06/28/16 [History] Levofloxacin [Levaquin] 750 mg PO DAILY #4 tablet 06/29/16 [Rx] PredniSONE 40 mg PO DAILY #7 tablet 06/29/16 [Rx] Allergies/Adverse Reactions: Allergies morphine Allergy (Verified 06/09/16 19:02) Hallucinating Date of admission: 06/28/16 11:44 Primary care physician: Patricia Matthews CNP Consults: 06/28/16 12:27 Consult to Cardiology [CONS] Routine Comment: Consulting Provider: Cardiology Raquel Reason for Consult: chest pain Call Completed: No 06/28/16 13:08 Consult to Vascular Nurse [CONS] Routine Reason for SW Consult: d/c NEEDS HAS HOME O2 AND HOME HEALTH [facility] Discharging clinician: Janny Conte Anticipated date of discharge: 06/29/16 - Patient Status Disposition: Home, Self-Care Condition: Good Functional capacity at discharge: uses cane/walker Overall status at discharge: patient is back to baseline - Discharge Instructions Follow Up With: Patricia Matthews CNP [Primary Care Provider] - Additional Instructions: Please follow up with your primary care physician within five days after your discharge from the hospital. Please follow up with your stand grinder (Dr Dow) and machine farmworker (Dr. Blancas ) within one week after your discharge from the hospital. Please speak to your machine farmworker about starting you on a long acting steroid inhaler. Please use oxygen continuously. Smoking cessation is highly recommended. Please take Prednisone and Levaquin as prescribed. Please resume all your other home medications as prescribed by your primary care physician. - Diet and Activity Activity: resume usual activities as tolerated, wear oxygen at all times Diet: low fat, low cholesterol, low salt diet Hospital course: Ms. Vegas is a 66 year old female with PMH of CAD, s/p PCI, COPD on LTOT, GERD, HLD, HTN, Obesity, Tobacco abuse who was admitted for evaluation of chest pain and shortness of breath. Given patient's cardiac history, patient was admitted to rule out ACS. Cardiac work up was negative and ACS was ruled out. Patient was seen by stand grinder and no acute intervention was recommended at this time. She was also noted to have mild COPD exacerbation and did receive a high dose of IV steroids in the ER. Her respiratory status improved and is back to baseline. She reports of being an every day smoker, smoking 2ppd. Extensive smoking cessation counseling has been provided and she states she will try to quit. At this time she denies any chest pain, and her respiratory status is at baseline. She will be discharged to home with PO abx and steroids. She is to follow up with PCP, Cardio, and Pulm after discharge. Patient demonstrates understanding of her diagnosis and agrees with the discharge care plan. She states she has home health services and refuses any social services coordinator at this time. Time spent discussing smoking cessation with patient: 3 to 10 minutes - Time Spent with Patient Total time spent providing and/or coordinating discharge services: Less than 30 minutes - Constitutional Vitals: Temp Pulse Resp BP Pulse Ox 97.5 F L 73 20 145/90 96 06/29/16 07:01 06/29/16 07:01 06/29/16 07:01 06/29/16 07:01 06/29/16 07:01 General appearance: Present: A&O X 3, no acute distress, obese - Head Head exam: Present: atraumatic, normocephalic - Eye Eye exam: Present: PERRL, conjuntiva pink, sclera anicteric - Respiratory Respiratory exam: Present: CTAB. Absent: respiratory distress, wheezes - Cardiovascular Cardiovascular exam: Present: RRR, +S1, +S2. Absent: diastolic murmur, gallop, rubs, systolic murmur - GI/Abdominal GI/Abdominal exam: Present: normal bowel sounds, soft, no peritoneal signs. Absent: distended, tenderness - Extremities Exam Extremities exam: Present: warm, radial pulses palpable and symetrical. Absent : calf tenderness, cyanotic, pedal edema - Neurological Exam Neurological exam: Present: alert, oriented X3 - Psychiatric Psychiatric exam: Present: normal affect, normal mood
[2016-06-29 11:00] VITALS: BP 167/77
[2016-07-02 11:32] LABS: CK-MB (CK isoenzymes) 0 % (0-4); CK-MM (CK-isoenzymes) 100 % (96-100)
[2016-07-02 11:32] LABS: CK-MB (CK isoenzymes) 0 % (0-4); CK-MM (CK-isoenzymes) 100 % (96-100)
[2016-07-03 07:16] LABS: CK Total (Ck Isoenzymes) 60 U/L (20-180); CK-BB (CK isoenzymes) 0 % (0-0)
[2016-07-03 07:16] LABS: CK Total (Ck Isoenzymes) 62 U/L (20-180); CK-BB (CK isoenzymes) 0 % (0-0)
== END 2016-06-29 12:15 | disposition home or self-care (01) ==
LOC: 3BNU 08:48 → EMEROO 08:48 → SUATTDRO 11:44 → 3BNU 12:14
PROVIDERS: ADMIT Hospitalist; ATTEND Internal Medicine